=== PATIENT | male | born 1975 | race Caucasian/White ===

== ENCOUNTER 2024-01-26 02:36 | Emergency (ER) | payer OTHER, SELFPAY ==
[2024-01-26] MEDS ORDERED: ONDANSETRON 4 MG/2 ML VIAL ONE (02:58)
[2024-01-26] MEDS ORDERED: TAMSULOSIN 0.4 MG SR CAP ONE (02:59)
[2024-01-26] MEDS ORDERED: MORPHINE 4 MG/ML SYR ONE (02:59)
[2024-01-26] MEDS ORDERED: KETOROLAC 30 MG/ML INJ ONE (02:59)
[2024-01-26] MEDS ORDERED: NA CHLORIDE 0.9% 1,000 ML ONE (03:00)
[2024-01-26 03:19] LABS: Absolute Basophils 0.1 K/uL (0-0.5); Absolute Eosinophils 0.1 K/uL (0-0.5); Absolute Lymphocytes (CBC) 2.2 K/uL (0.7-4.9); Absolute Monocytes 1.1 K/uL (0.1-1.3); Absolute Neutrophil 13.5 K/uL (1.8-8.0); Basophils % 0.6 % (0-1.3); Eosinophils % 0.6 % (0-4.4); Hematocrit 42.4 % (39.6-49.0); Hemoglobin 14.9 g/dL (13.6-17.9); Lymphocytes % 12.8 % (15.3-44.8); MCH 29.6 pg (27.0-35.0); MCHC 35.2 g/dL (32.0-36.0); MCV 83.9 fL (80-100); MPV 7.3 fL (7.6-11.3); Monocytes % 6.3 % (3.3-12.3); Neutrophils % 79.7 % (41.7-73.7); Platelets 320 thou/uL (152-406); RBC Red Blood Cell Count 5.06 M/uL (4.33-5.43); Red Cell Distribution Width 12.5 % (12.1-15.2)
[2024-01-26 03:32] LABS: Albumin 3.6 g/dL (3.4-5.0); Albumin/Globulin Ratio 0.9 (1.1-1.8); Anion Gap 9.9 mEq/L (5.0-15.0); Bilirubin Total 0.5 mg/dL (0.2-1.0); Globulin 3.9 g/dL (2.3-3.5); Potassium 3.9 mEq/L (3.5-5.1); Protein, Total 7.5 g/dL (6.4-8.2)
[2024-01-26] MEDS ORDERED: PROMETHAZINE 25 MG TABLET ONE (04:21)
[2024-01-26] MEDS ORDERED: HYDROCODONE/APAP 10/325 TAB ONE (04:21)
[2024-01-26] MEDS ORDERED: DICYCLOMINE HCL 10 MG CAP ONE (04:21)
[2024-01-26] MEDS ORDERED: IBUPROFEN 400 MG TAB ONE (04:22)
[2024-01-26] MEDS ORDERED: METOCLOPRAMIDE 10 MG/2mL INJ ONE (04:32)
--- NOTE | 2024-01-26 04:56 | EDPHYS ---
Physician Documentation [facility] Name: Irvin Peraza Age: 48 yrs Sex: Male : 1975 Arrival Date: 01/26/2024 Time: 02:36 Bed 5 Private MD: ED Physician Bunny Menon HPI: 01/25 02:49 This 48 yrs old Male presents to ER via Unassigned with complaints of Flank sp4 Pain. 02:50 48-year-old male presents with acute onset of left flank pain just prior to arrival. sp4 Patient presents with EMS. EMS administered Toradol 50 mg IV and Zofran 4 mg IV. Patient reports pain is similar to prior kidney stones. Patient reports pain was acute in onset associated with vomiting. Patient also reports episode of hematuria. Historical: - Allergies: 02:51 No Known Allergies; tm6 - PMHx: 02:51 Kidney stone; tm6 - PSHx: 02:51 None; tm6 - Immunization history:: Adult Immunizations up to date, Client reports receiving the 2nd dose of the Covid vaccine, Flu vaccine is not up to date. - Social history:: Smoking status: Patient reports the use of cigarette tobacco products, smokes one pack cigarettes per day. Patient uses alcohol, occasionally. - Family history:: not pertinent. ROS: 02:50 Constitutional: Negative for fever, chills, and weight loss, positive for left flank sp4 pain and hematuria, positive for vomiting 02:50 All other systems are negative, Exam: 02:50 Constitutional: This is a well developed, well nourished patient who is awake, alert, sp4 stressed secondary to pain. Head/Face: Normocephalic, atraumatic. Eyes: Pupils equal round and reactive to light, extra-ocular motions intact. Lids and lashes normal. Conjunctiva and sclera are not injected. Cornea within normal limits. Periorbital areas with no swelling, redness, or edema. ENT: Nares patent. No nasal discharge, no septal abnormalities noted. Tympanic membranes are normal and external auditory canals are clear. Oropharynx with no redness, swelling, or masses, exudates, or evidence of obstruction, uvula midline. Mucous membranes moist. Neck: Trachea midline, no thyromegaly or masses palpated, and no cervical lymphadenopathy. Supple, full range of motion without nuchal rigidity, or vertebral point tenderness. Chest/axilla: Normal chest wall appearance and motion. Nontender with no deformity. No lesions are appreciated. Cardiovascular: Regular rate and rhythm with a normal S1 and S2. No gallops, murmurs, or rubs. Normal PMI, no JVD. No pulse deficits. Respiratory: Lungs have equal breath sounds bilaterally, clear to auscultation and percussion. No rales, rhonchi or wheezes noted. No increased work of breathing, no retractions or nasal flaring. Abdomen/GI: Soft, with normal bowel sounds. No distension or tympany. No guarding or rebound. No evidence of tenderness throughout. Back: No spinal tenderness. No costovertebral tenderness. Male : Normal genitalia with no discharge or lesions. Skin: Warm, dry with normal turgor. Normal color with no rashes, no lesions, and no evidence of cellulitis. MS/ Extremity: Pulses equal, no cyanosis. Neurovascular intact. Full, normal range of motion. Neuro: Awake and alert, GCS 15, oriented to person, place, time, and situation. Cranial nerves II-XII grossly intact. Motor strength 5/5 in all extremities. Sensory grossly intact. Psych: Awake, alert, with orientation to person, place and time. Behavior, mood, and affect are within normal limits Vital Signs: 02:48 BP 142 / 127; Pulse 94; Resp 22; Temp 98.5(O); Pulse Ox 100% on R/A; Weight 95.25 kg; tm6 Height 5 ft. 4 in. ; Pain 10/10; 03:39 BP 146 / 59; Pulse 84; Pulse Ox 99% on R/A; Pain 2/10; tm6 04:26 BP 147 / 73; Pulse 82; Pulse Ox 100% ; Pain 5/10; tm6 05:14 BP 145 / 78; Pulse 71; Resp 19; Temp 97.5(TE); Pulse Ox 96% on R/A; Pain 5/10; tm6 02:48 Body Mass Index 36.05 (95.25 kg, 162.56 cm) tm6 02:48 Pain Scale: Adult tm6 03:39 Pain Scale: Adult tm6 04:26 Pain Scale: Adult tm6 05:14 Pain Scale: Adult tm6 MDM: 03:23 Patient medically screened. sp4 04:15 ED course: TECHNIQUE: Contiguous axial images of the abdomen and pelvis were obtained sp4 after the administration of intravenous contrast followed by reconstruction images.This exam was performed according to our departmental dose-optimization program, which includes automated exposure control, adjustment of the mA and/or kV according to patient size and/or use of iterative reconstruction technique. FINDINGS: Left kidney demonstrates hydronephrosis due to 3 mm stone at the urethrovesical junction. There is atherosclerosis. The liver, spleen, pancreas and right kidney are within normal limits. The gallbladder is unremarkable by CT criteria. Adrenal glands are within normal limits. Aorta is of normal caliber and tapering. There is no free fluid in the abdomen or pelvis. There is no bowel obstruction. There is no stranding of the mesenteric fat to suggest an inflammatory response. The appendix is within normal limits. There is no pericecal inflammation. IMPRESSION: Left hydronephrosis due to a 3 mm stone at the urethrovesical junction.. 04:58 Differential diagnosis: nephrolithiasis, pyelonephritis, UTI, diverticulitis. Data sp4 reviewed: vital signs, nurses notes, lab test result(s), radiologic studies, CT scan. Consideration of Admission/Observation Escalation of care including admission/observation considered. ED course: Patient has a relatively small 3 mm left ureteral stone. Patient is stable for discharge home with as needed pain medications. . 01/25 02:50 Order name: CBC with Diff; Complete Time: 04:15 sp4 01/25 02:50 Order name: CMP; Complete Time: 04:15 sp4 01/25 02:50 Order name: Lipase; Complete Time: 04:15 sp4 01/25 02:50 Order name: Urinalysis w/ reflexes sp4 01/25 02:50 Order name: CT Abd/Pelvis - Without Contrast sp4 01/25 02:50 Order name: IV Saline Lock; Complete Time: 02:56 sp4 01/25 02:50 Order name: Labs collected and sent; Complete Time: 03:07 sp4 Administered Medications: 03:08 Drug: morphine IVP or IV 4 mg IVP once over 4 mins Route: IVP; Infused Over: 4 mins; tm6 Site: left antecubital; 03:08 Drug: Ondansetron IVP 4 mg IVP once; over 2 minutes Route: IVP; Site: left antecubital; tm6 03:17 Drug: Ketorolac IVP 15 mg IVP once Route: IVP; Site: left antecubital; tm6 03:17 Drug: NS 0.9% IV 1000 ml IV at 1 bolus Per protocol; 1000 mL bolus Route: IV; Rate: 1 tm6 bolus; Site: left antecubital; 05:14 Follow up: IV Status: Completed infusion; IV Intake: 1000ml tm6 03:17 Drug: Flomax PO 0.4 mg PO once Route: PO; tm6 04:24 Drug: Promethazine PO 25 mg PO once Route: PO; tm6 04:25 Drug: [place] PO 10 mg-325 mg 1 tabs PO once Route: PO; tm6 04:25 Drug: Dicyclomine PO 20 mg PO once Route: PO; tm6 04:25 Drug: Ibuprofen PO 800 mg PO once Route: PO; tm6 04:36 Drug: metoCLOPramide IVP 10 mg IVP once; over 1 to 2 minutes Route: IVP; Site: left tm6 antecubital; Disposition Summary: 01/26/24 04:56 Discharge Ordered Notes: Location: Home sp4 Problem: new sp4 Symptoms: have improved sp4 Condition: Stable sp4 Diagnosis - Acute left ureteral stone, left hydronephrosis with ureteral calculus sp4 Followup: sp4 - With: Luisito Wright MD - When: 7 - 10 days - Reason: Recheck today's complaints Discharge Instructions: - Discharge Summary Sheet sp4 - Kidney Stones, [id number] sp4 Forms: - Prescription Opioid Use sp4 Prescriptions: - Flomax 0.4 mg Oral capsule - take 1 capsule ORAL route daily; 30 capsule; Refills: 0, Product Selection sp4 Permitted - Ibuprofen 800 mg Oral Tablet - take 1 tablet ORAL route every 8 hours As needed take with food; 30 tablet; sp4 Refills: 0, Product Selection Permitted - Tramadol 50 mg Oral tablet - take 1 tablet ORAL route every 8 hours as needed; 20 tablet; Refills: 0, sp4 Product Selection Permitted - promethazine 25 mg Oral tablet - take 1 tablet ORAL route every 6 hours As needed; 30 tablet; Refills: 0, sp4 Product Selection Permitted Signatures: Dispatcher [employer] Bunny Sidhu MD MD sp4 Chema Mccurdy, RN RN tm6
--- NOTE | 2024-01-26 04:56 | ER ---
Nurse's Notes [facility] Name: Irvin Peraza Age: 48 yrs Sex: Male : 1975 Arrival Date: 01/26/2024 Time: 02:36 Bed 5 Private MD: Diagnosis: Acute left ureteral stone, left hydronephrosis with ureteral calculus Presentation: 01/25 02:48 Chief complaint: Patient states: Left flank pain that goes to LLQ and pubic area. tm6 Patient also states he had blood in his urine this morning, then cloudy urine this afternoon. Patient states his penis is burning. Coronavirus screen: Vaccine status: Patient reports receiving the 2nd dose of the covid vaccine. Ebola Screen: Patient negative for fever greater than or equal to 101.5 degrees Fahrenheit, and additional compatible Ebola Virus Disease symptoms Patient denies exposure to infectious person. Patient denies travel to an Ebola-affected area in the 21 days before illness onset. No symptoms or risks identified at this time. Initial Sepsis Screen: Does the patient meet any 2 criteria? No. Patient's initial sepsis screen is negative. Does the patient have a suspected source of infection? No. Patient's initial sepsis screen is negative. Risk Assessment: Do you want to hurt yourself or someone else? Patient reports no desire to harm self or others. Onset of symptoms was January 26, 2024. Care prior to arrival: Medication(s) given: zofran 4 mg, Toradol 15mg. 02:48 Method Of Arrival: EMS: [facility] tm6 02:48 Acuity: ENA 3 tm6 Triage Assessment: 02:51 General: Appears distressed, Behavior is cooperative. Pain: Complains of pain in tm6 anterior aspect of right lateral abdomen, posterior aspect of right lateral abdomen, left lower quadrant and pelvis Pain currently is 10 out of 10 on a pain scale. Quality of pain is described as sharp, burning in penis. EENT: No signs and/or symptoms were reported regarding the EENT system. Neuro: Level of Consciousness is awake, alert, obeys commands, Oriented to person, place, time, situation. Cardiovascular: Capillary refill < 3 seconds Patient's skin is warm and dry. Respiratory: Airway is patent Respiratory effort is even, unlabored, Respiratory pattern is regular, symmetrical. GI: No signs and/or symptoms were reported involving the gastrointestinal system. Abdomen is flat, non-distended. : Reports burning with urination, discharge, bloody, pain flank(s), lower quadrant(s) in lower back. Derm: No signs and/or symptoms reported regarding the dermatologic system. Musculoskeletal: No signs and/or symptoms reported regarding the musculoskeletal system. Historical: - Allergies: 02:51 No Known Allergies; tm6 - PMHx: 02:51 Kidney stone; tm6 - PSHx: 02:51 None; tm6 - Immunization history:: Adult Immunizations up to date, Client reports receiving the 2nd dose of the Covid vaccine, Flu vaccine is not up to date. - Social history:: Smoking status: Patient reports the use of cigarette tobacco products, smokes one pack cigarettes per day. Patient uses alcohol, occasionally. - Family history:: not pertinent. Screenin:54 [facility] ED Fall Risk Assessment (Adult) History of falling in the last 3 months, tm6 including since admission No falls in past 3 months (0 pts) Confusion or Disorientation No (0 pts) Intoxicated or Sedated No (0 pts) Impaired Gait No (0 pts) Mobility Assist Device Used No (0 pt) Altered Elimination No (0 pt) Score/Fall Risk Level 0 - 2 = Low Risk Oriented to surroundings, Maintained a safe environment. Abuse screen: Denies threats or abuse. Denies injuries from another. Nutritional screening: No deficits noted. Tuberculosis screening: No symptoms or risk factors identified. Assessment: 02:54 Reassessment: see triage assessment. tm6 03:39 Reassessment: Patient and/or family updated on plan of care and expected duration. Pain tm6 level reassessed. Patient is alert, oriented x 3, equal unlabored respirations, skin warm/dry/pink. 04:26 Reassessment: Patient and/or family updated on plan of care and expected duration. Pain tm6 level reassessed. Patient is alert, oriented x 3, equal unlabored respirations, skin warm/dry/pink. 05:14 Reassessment: Patient and/or family updated on plan of care and expected duration. Pain tm6 level reassessed. Patient is alert, oriented x 3, equal unlabored respirations, skin warm/dry/pink. Vital Signs: 02:48 BP 142 / 127; Pulse 94; Resp 22; Temp 98.5(O); Pulse Ox 100% on R/A; Weight 95.25 kg; tm6 Height 5 ft. 4 in. ; Pain 10/10; 03:39 BP 146 / 59; Pulse 84; Pulse Ox 99% on R/A; Pain 2/10; tm6 04:26 BP 147 / 73; Pulse 82; Pulse Ox 100% ; Pain 5/10; tm6 05:14 BP 145 / 78; Pulse 71; Resp 19; Temp 97.5(TE); Pulse Ox 96% on R/A; Pain 5/10; tm6 02:48 Body Mass Index 36.05 (95.25 kg, 162.56 cm) tm6 02:48 Pain Scale: Adult tm6 03:39 Pain Scale: Adult tm6 04:26 Pain Scale: Adult tm6 05:14 Pain Scale: Adult tm6 ED Course: 02:48 Patient arrived in ED. rv1 02:48 Chema Mccurdy, LAMAR is Primary Nurse. tm6 02:49 Bunny Menon MD is Attending Physician. sp4 02:51 Triage completed. tm6 02:51 Arm band placed on right wrist. tm6 02:54 Patient has correct armband on for positive identification. Placed in gown. Bed in low tm6 position. Call light in reach. Side rails up X2. Provided Education on: plan of care. Client placed on continuous cardiac and pulse oximetry monitoring. NIBP monitoring applied. Pulse ox on. NIBP on. Door closed. Noise minimized. Lights dimmed. Warm blanket given. 02:54 Maintain EMS IV. Dressing intact. Good blood return noted. Site clean \T\ dry. Gauge \T\ tm 6 site: 20g LAC. 03:08 CBC with Diff Sent. tm6 03:08 CMP Sent. tm6 03:08 Lipase Sent. tm6 03:17 CT Abd/Pelvis - Without Contrast In Process Unspecified. EDMS 04:14 Urinalysis w/ reflexes Sent. tm6 04:55 Luisito Wright MD is Referral Physician. sp4 05:14 No provider procedures requiring assistance completed. IV discontinued, intact, tm6 bleeding controlled, No redness/swelling at site. Pressure dressing applied. Administered Medications: 03:08 Drug: morphine IVP or IV 4 mg IVP once over 4 mins Route: IVP; Infused Over: 4 mins; tm6 Site: left antecubital; 03:08 Drug: Ondansetron IVP 4 mg IVP once; over 2 minutes Route: IVP; Site: left antecubital; tm6 03:17 Drug: Ketorolac IVP 15 mg IVP once Route: IVP; Site: left antecubital; tm6 03:17 Drug: NS 0.9% IV 1000 ml IV at 1 bolus Per protocol; 1000 mL bolus Route: IV; Rate: 1 tm6 bolus; Site: left antecubital; 05:14 Follow up: IV Status: Completed infusion; IV Intake: 1000ml tm6 03:17 Drug: Flomax PO 0.4 mg PO once Route: PO; tm6 04:24 Drug: Promethazine PO 25 mg PO once Route: PO; tm6 04:25 Drug: [place] PO 10 mg-325 mg 1 tabs PO once Route: PO; tm6 04:25 Drug: Dicyclomine PO 20 mg PO once Route: PO; tm6 04:25 Drug: Ibuprofen PO 800 mg PO once Route: PO; tm6 04:36 Drug: metoCLOPramide IVP 10 mg IVP once; over 1 to 2 minutes Route: IVP; Site: left tm6 antecubital; Medication: 02:54 VIS not applicable for this client. tm6 Intake: 05:14 IV: 1000ml; Total: 1000ml. tm6 Output: 04:36 Gastric: 400ml (Emesis); Total: 400ml. tm6 Outcome: 04:56 Discharge ordered by . sp4 05:14 Discharged to home ambulatory, with family, tm6 05:14 Condition: stable 05:14 Discharge instructions given to patient, family, Instructed on discharge instructions, follow up and referral plans. medication usage, Demonstrated understanding of instructions, follow-up care, medications, Prescriptions given X 4, 05:15 Patient left the ED. tm6 Signatures: Dispatcher [employer] Tiffanie Govea rv1 Bunny Menon MD MD sp4 Chema Mccurdy RN RN tm6
[2024-01-26 05:36] LABS: Specific Gravity > 1.030 (1.005-1.030); Sqamous Epithelial None Seen /HPF (None Seen); Urine Bacteria None Seen /HPF (<20); Urine Bilirubin NEGATIVE (Negative); Urine Blood 3+ (OVER) (Negative); Urine Clarity Clear (Clear); Urine Color Yellow (Yellow); Urine Culture Reflex Order NOT NEEDED; Urine Glucose 3+ (Negative); Urine Ketones 1+ (Negative); Urine Microscopic Reflex YN ORDER UMIC; Urine Mucus 1+ /HPF (None Seen); Urine Nitrite NEGATIVE (Negative); Urine Protein 1+ (Negative); Urine RBC >50 /HPF (None Seen); Urine Urobilinogen 2+ (Normal); Urine WBC <5 /HPF (<5)
[2024-01-26 05:43] VITALS: BP 145/78; TEMP 97.5; O2SAT 96
--- NOTE | 2024-01-26 11:05 | RAD REPORT ---
EXAM DESCRIPTION: Abdomen and Pelvis Wo Contrast CLINICAL HISTORY: Left flank pain COMPARISON: None Available TECHNIQUE: Contiguous axial images of the abdomen and pelvis were obtained after the administration of intravenous contrast followed by reconstruction images.This exam was performed according to our de partmental dose-optimization program, which includes automated exposure control, adjustment of the mA and/or kV according to patient size and/or use of iterative reconstruction technique. FINDINGS: Left kidney demonstrates hydronephrosis due to 3 mm stone at the urethrovesical junction. There is atherosclerosis. The liver, spleen, pancreas and right kidney are within normal limits. The gallbladder is unremarka ble by CT criteria. Adrenal glands are within normal limits. Aorta is of normal caliber and tapering. There is no free fluid in the abdomen or pelvis. There is no bowel obstruction. There is no strandin g of the mesenteric fat to suggest an inflammatory response. The appendix is within normal limits. Th ere is no pericecal inflammation. IMPRESSION: Left hydronephrosis due to a 3 mm stone at the urethrovesical junction. Electronically signed by: Daniel Brown MD 01/26/2024 03:49 AM CDT Due to temporary technical issues with the PACS/Fluency reporting system, reports are being signed by the in house radiologist without review as a courtesy to ensure prompt reporting. The interpreting r adiologist is fully responsible for the content of the report.
== END 2024-01-26 05:15 | disposition home or self-care (01) ==
LOC: ER 02:36
DX: N13.2 Hydronephrosis with renal and ureteral calculous obstruction (principal)
CPT/HCPCS: 36415; 74176; 80053; 81001; 83690; 85025; 96361; 96374; 96375; 99284; J2405; J2765; J7030; Q0169